=== PATIENT | male | born 1955 | race Caucasian/White ===

== ENCOUNTER 2017-01-13 15:57 | Emergency (ER) | payer BC ==
[~2017-01-13] VITALS: Ht 177.8 cm; Wt 79.2 kg
[2017-01-13 16:11] VITALS: TEMP 36.8; Ht 177.8 cm; Wt 79.2 kg
[2017-01-13 17:00] LABS: BASO % 0.3 %; BASO ABS # 0.02 K/uL (0-0.2); COMPLETE YES; EOS % 2.3 %; HEMATOCRIT 39.5 % (42-52); LYMPH % 19.1 %; LYMPH ABS # 1.25 K/uL (1.2-3.4); MEAN CELL VOLUME 88.2 fL (80-100); MEAN CORPUSCULAR HGB CONC 35.2 g/dl (32-36); MONO % 9.5 %; NEUT % 68.8 %; PLATELET COUNT 138 K/uL (130-400); RED BLOOD COUNT 4.48 M/uL (4.7-6.1); WHITE BLOOD COUNT 6.53 K/uL (4.8-10.8)
--- NOTE | 2017-01-13 17:04 | DIAGNOSTIC IMAGING REPORT ---
LEFT TIBIA AND FIBULA 2 VIEWS CLINICAL HISTORY: Left leg swelling. FINDINGS: AP and lateral views of the left tibia and fibula are obtained. No prior studies are available for comparison at the time of dictation. The skeletal structures are well mineralized. No fracture is seen. The knee and ankle joints are grossly preserved. Soft tissue edema is present in the calf. No radiodense foreign body is identified and no subcutaneous gas is seen. IMPRESSION: Soft tissue swelling with no acute bony abnormality seen in the left tibia or fibula. Electronically signed by: Garret Martin M.D. 01/13/2017 5:02 PM Dictated Date/Time: 01/13/2017 5:01 PM
[2017-01-13 17:08] LABS: PROTHROMBIN TIME (PATIENT) 11.1 SECONDS (9.0-12.0)
[2017-01-13 17:16] LABS: BUN/CREATININE RATIO 17.5 (10-20); CALCIUM 8.8 mg/dl (8.5-10.1); CREATININE 1.3 mg/dl (0.60-1.40); POTASSIUM 4.1 mmol/L (3.5-5.1)
--- NOTE | 2017-01-13 18:25 | DIAGNOSTIC IMAGING REPORT ---
ULTRASOUND LEFT LOWER EXTREMITY VENOUS CLINICAL HISTORY: Left leg pain and swelling. COMPARISON STUDY: No priors. TECHNIQUE: Real-time, grayscale, and color Doppler sonography of the deep veins of the left lower extremity was performed from the inguinal crease to the calf. Compression and augmentation were utilized. FINDINGS: There is no sonographic evidence of deep venous thrombosis identified in the left lower extremity. The common femoral, superficial femoral, and popliteal veins are patent and normally compressible. The greater saphenous vein and the profunda femoris vein at the junction with the common femoral vein are clear. The visualized calf veins are patent. IMPRESSION: There is no sonographic evidence of deep venous thrombosis identified in the left lower extremity. Electronically signed by: Garret Martin M.D. 01/13/2017 6:24 PM Dictated Date/Time: 01/13/2017 6:24 PM
[2017-01-13 18:51] VITALS: BP 148/92; PULSE 62; O2SAT 97
--- NOTE | 2017-01-14 00:42 | EMERGENCY ROOM VISIT NOTE ---
ED Visit Note First contact with patient: 16:15 Chief Complaint: Left lower leg swelling and pain. History of Present Illness: Mr. Samano is a 61-year-old white male who ambulates into the ED complaining of left lower leg pain and swelling. Patient reports his symptoms started on last , 4 days ago, after arriving home from work. Patient reports historically that after a long day of work on his feet he does come home and there is mild swelling but that typically resolves by the time he wakes up the next morning from sleep. Since his pain and swelling has been constant. He places his discomfort over the proximal portion of the gastrocnemius inferior to the knee. He describes his discomfort as an achy sensation. He rates his discomfort 5/ 10. The pain is nonradiating. The pain worsens with palpation. He has not identified any alleviating factors related to the pain. He has not taken any medication for pain prior to arrival at the hospital. Associated with his pain he reports he has noted constant swelling in this area but now the swelling is also around the left ankle. Historically patient also reports in early November he drove back and forth to [place] for a family vacation. Additionally he notes for approximately last 6 years when he has long episodes of standing or does a lot of walking he develops a lump in the left groin area. After he rests the lump resolves. He reports he does not have any specific pain when the lump presents but just reports a generally sense of discomfort in that area. He has not seen a practitioner for this lump prior to arrival at the hospital. Currently he does not have a lump in no discomfort in this area. Patient denies fevers, chills, sweats, skin eruptions, skin color changes, upper respiratory tract symptoms, cough, wheezing, shortness of breath, palpitations, chest discomfort, previous clots, claudication, cramping, recent surgery/inactivity, left lower extremity weakness/numbness/tingling. Review of Systems: As noted above in history of present illness. All body systems were reviewed and found to be negative as noted above. Past Medical History: Kidney stones, seasonal allergies. Current Medications: Patient denies. Allergies to Medications: Patient denies. Social History: Patient is currently employed; he feels safe in his home environment; he denies tobacco use; he admits to social alcohol use. Physical Examination: Vital Signs: Date Time Temp Pulse Resp B/P (MAP) Pulse Ox O2 Delivery O2 Flow Rate FiO2 01/13/17 18:51 62 18 148/92 97 01/13/17 16:11 36.8 78 20 143/79 98 Room Air GENERAL: 61-year-old male in mild distress due to pain, nontoxic-appearing, afebrile and hemodynamically stable. NEUROLOGICAL: Awake, alert and oriented to person, place and time. Answering questions appropriately and following commands. Normal gait. Good hand eye coordination. No focal motor or sensory deficits. SKIN: Warm, dry and pink. No soft tissue eruptions or trauma noted. HEENT: Atraumatic and normocephalic. BACK: No tenderness over the bony spine. No CVA tenderness. THORAX: Lungs sounds are clear to auscultation and equal bilaterally with symmetrical chest wall. No wheezing, rales or rhonchi. No crepitus, tenderness , subcutaneous air or deformities noted. HEART: Regular rate and rhythm. No gallops, rubs or murmurs are appreciated. ABDOMEN: Flat, soft and nontender. Positive bowel sounds in all quadrants. No guarding, rigidity or organomegaly. LEFT GROIN: No lumps. No tenderness in this area. Was not able to palpate any deformity of the abdominal musculature. No tenderness in the right inguinal canal. No presence of palpable masses. LEFT LOWER EXTREMITY: No gross bony deformity. No shortening or malrotation. No tenderness in the hip or knee. Approximately 3-4 cm inferior to the knee patient has mild tenderness in the gastrocnemius. There is no muscular deformity, swelling or ecchymosis. Patient has bimalleolar areas are swelling without erythema or bruising. No tenderness in the area for swelling. 5/5 muscle strength in flexion and extension of the knee, plantar flexion, dorsiflexion and inversion and eversion of the ankle. Flexion and extension of the toes. Throughout the foot the skin was warm and pink and capillary refill is brisk. He is able to distinguish light sensations through all dermatomes of the foot. ED Course: Patient is assessed as noted above. Patient's medication list was reviewed. Laboratory Testing: Test 01/13/17 16:45 Range/Units White Blood Count 6.53 4.8-10.8 K/uL Red Blood Count 4.48 4.7-6.1 M/uL Hemoglobin 13.9 14.0-18.0 g/dL Hematocrit 39.5 42-52 % Mean Corpuscular Volume 88.2 80-100 fL Mean Corpuscular Hemoglobin 31.0 25-34 pg Mean Corpuscular Hemoglobin Concent 35.2 32-36 g/dl Platelet Count 138 130-400 K/uL Mean Platelet Volume 10.0 7.4-10.4 fL Neutrophils (%) (Auto) 68.8 % Lymphocytes (%) (Auto) 19.1 % Monocytes (%) (Auto) 9.5 % Eosinophils (%) (Auto) 2.3 % Basophils (%) (Auto) 0.3 % Neutrophils # (Auto) 4.49 1.4-6.5 K/uL Lymphocytes # (Auto) 1.25 1.2-3.4 K/uL Monocytes # (Auto) 0.62 0.11-0.59 K/uL Eosinophils # (Auto) 0.15 0-0.5 K/uL Basophils # (Auto) 0.02 0-0.2 K/uL RDW Standard Deviation 40.0 36.4-46.3 fL RDW Coefficient of Variation 12.5 11.5-14.5 % Immature Granulocyte % (Auto) 0.0 % Immature Granulocyte # (Auto) 0.00 0.00-0.02 K/uL Prothrombin Time 11.1 9.0-12.0 SECONDS Prothromb Time International Ratio 1.0 0.9-1.1 Activated Partial Thromboplast Time 25.7 21.0-31.0 SECONDS Partial Thromboplastin Ratio 1.0 Sodium Level 146 136-145 mmol/L Potassium Level 4.1 3.5-5.1 mmol/L Chloride Level 112 98-107 mmol/L Carbon Dioxide Level 28 21-32 mmol/L Anion Gap 6.0 3-11 mmol/L Blood Urea Nitrogen 23 7-18 mg/dl Creatinine 1.30 0.60-1.40 mg/dl Est Creatinine Clear Calc Drug Dose 62.4 ml/min Estimated GFR () 68.7 Estimated GFR (Non- 59.3 BUN/Creatinine Ratio 17.5 10-20 Random Glucose 93 70-99 mg/dl Calcium Level 8.8 8.5-10.1 mg/dl Left Lower Leg X-Rays: Were read by selvinelf and the radiologist showing no acute fractures or dislocations. Soft tissue edema is noted in the calf. Left Lower Extremity Doppler Venous Ultrasound: Was reviewed by myself and read by the radiologist showing no sonographic evidence of deep vein thrombus. Patient was offered pain medications and refused. Patient was reassessed multiple times during his stay in the emergency department. Patient's case was reviewed with Dr. Martinez; we agreed on diagnostic approach , treatment, disposition and plan. Patient was educated about today's findings and instructed on his treatment plan ; he verbalizes understanding and agreement with this plan. Clinical Impression: Left lower leg pain and swelling. Left inguinal lesion. Decision-Making: Initially my differential diagnosis I considered muscle injury including strain or sprain, DVT, superficial thrombophlebitis, contusion and other causes. Disposition: Patient discharged home in stable condition; prior to departure he was reassessed and subjectively reported he was feeling slightly better. Plan: Patient was encouraged use ibuprofen or acetaminophen every 6 hours as needed for pain. Patient was encouraged use ice on areas of pain and swelling in the knee and in the groin while at rest. Patient was encouraged to elevate the leg while at rest. Patient was encouraged to consider using compression stockings. Patient was encouraged to follow-up with his PCP for recheck for for his leg swelling/pain and groin lesions with possible referral to specialist. Patient is encouraged return ED for worsening/uncontrolled pain, uncontrolled swelling in the leg, worsening lesion in the groin silva fevers, chest pain, shortness of breath, sensations of heart racing or any new/concerning symptoms.
== END 2017-01-13 19:15 | disposition home or self-care (01) ==
LOC: C.EDB 15:59 → C.EDD 19:15
DX: M79.605 Pain in left leg (principal); M79.89 Other specified soft tissue disorders; L98.9 Disorder of the skin and subcutaneous tissue, unspecified

== ENCOUNTER → 2017-02-11 | Outpatient (CLI) | payer BC ==
[2017-02-11 13:29] LABS: ALT/SGPT 40 U/L (12-78); BLOOD UREA NITROGEN 21 mg/dl (7-18); BUN/CREATININE RATIO 17.3 (10-20); CALCIUM 9.1 mg/dl (8.5-10.1); CARBON DIOXIDE 28 mmol/L (21-32); CHLORIDE 107 mmol/L (98-107); CHOLESTEROL 202 mg/dl (0-200); GLUCOSE,FASTING 98 mg/dl (70-99); POTASSIUM 4.7 mmol/L (3.5-5.1); SODIUM 140 mmol/L (136-145); TRIGLYCERIDES 262 mg/dl (0-150); VERY LOW DENSITY LIPOPROT CALC 52 mg/dl
[2017-02-11 13:32] LABS: ALB/GLOB RATIO 1.3 (0.9-2); ALKALINE PHOSPHATASE 69 U/L (45-117); AST/SGOT 33 U/L (15-37); CHOLESTEROL/HDL RATIO 4.6; HDL CHOLESTEROL 44 mg/dl; LDL CHOLESTEROL CALCULATED 106 mg/dl
== END | disposition home or self-care (01) ==
LOC: C.LABPBG 07:50
PROVIDERS: ATTEND Physician Assistant
DX: Z00.00 Encounter for general adult medical examination without abnormal findings (principal)